=== PATIENT | female | born 1945 | race Caucasian/White ===

== ENCOUNTER 2016-10-13 21:51 | Emergency (ER) | payer MEDICARE, BC ==
--- NOTE | 2016-10-13 22:11 | ED Physician Documentation ---
PD HPI LOWER EXT INJURY - Stated complaint Stated Complaint: RT ANKLE INJURY - Chief complaint Chief Complaint: Ext Problem - History obtained from History obtained from: Patient - History of Present Illness PD HPI LOW EXT INJURY LOCATION: Right, Ankle, Foot Type of injury: No: Fall, Twist, Blunt / blow Timing - onset: Yesterday Timing - duration: Days (1-2) Timing - details: Gradual onset, Still present Worsened by: Moving, Palpating Associated symptoms: Swelling, Discolored (mild redness). No: Weakness, Numbness Similar symptoms before: Diagnosis (arthritis with prior ankle fracture with surgery years ago, and she gets episodes of swelling, pain, tenderness, redness about every 6 months or so. Has had steroid injections in ankle which helps. Dx as arthritis in the past. Denies history/Dx of gout nor rheumatoid. 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 : None HEENT: None Psych: Depression, Anxiety, Bipolar disorder, Panic attacks, Claustrophobia Musculoskeletal: Fibromyalgia, Scoliosis, Chronic back pain Derm: Psoriasis - Past Surgical History Past Surgical History: Yes General: Colonoscopy, EGD Ortho: Spine surgery, Other /CARE MANAGER CNA: section, Breast implants HEENT: Tonsil/Adenoidectomy - Present Medications Home Medications: Ambulatory Orders Medication Instructions Recorded Confirmed Hydrochlorothiazide 25 mg PO DAILY 02/15/13 10/13/16 Lisinopril [Zestril] 40 mg PO DAILY 02/15/13 10/13/16 Atorvastatin [Lovastatin] 20 mg PO DAILY 02/09/14 10/13/16 Pantoprazole [Protonix] 40 mg PO DAILY 10/13/16 10/13/16 - Allergies Allergies/Adverse Reactions: Allergies Allergy/AdvReac Type Severity Reaction Status Date / Time codeine [Codeine] AdvReac Severe Anxiety Verified 06/07/15 00:30 doxepin [Doxepin] AdvReac Severe Anxiety Verified 06/07/15 00:30 NSAIDS (Non-Steroidal AdvReac Severe Anxiety Verified 06/07/15 00:30 Anti-Inflamma ampicillin AdvReac Unknown Verified 10/13/16 21:59 - Social History Does the pt smoke?: Yes Smoking Status: Current every day smoker Does the pt drink ETOH?: Yes Does the pt have substance abuse?: No - Immunizations Immunizations are current?: Yes - POLST Patient has POLST: No PD ED PE NORMAL - Vitals Vital signs reviewed: Yes - General General: Alert and oriented X 3, Well developed/nourished, Other (slightly anxious, appears in pain from foot hurting. ) - Derm Derm: Warm and dry - Extremities Extremities: No calf tenderness / cord, Other (dorsum of proximal right foot with some redness, swelling, and marked tenderness. Some tender and swelling at great toe MTP as well. No skin sores. ) - Neuro Neuro: Alert and oriented X 3, No motor deficit, Normal speech - Psych Psych: Normal mood. No: Normal affect (slightly anxious but pleasant. ) Results - Vitals Vitals: Vital Signs - 24 hr 10/13/16 21:57 Temperature 36.3 C L Heart Rate 79 Respiratory 18 Rate Blood Pressure 155/74 H O2 Saturation 100 Oxygen O2 Source Room air PD MEDICAL DECISION MAKING - ED course Complexity details: reviewed old records, considered differential (consider gout at least with this episode, though no history of it in the past. Does not look infectious, is the most important. ), d/w patient Departure - Departure Disposition: 01 Home, Self Care Clinical Impression: Acute ankle pain Qualifiers: Laterality: right Qualified Code(s): M25.571 - Pain in right ankle and joints of right foot Condition: Stable Record reviewed to determine appropriate education?: Yes Instructions: Arthritis Foot Comments: Rest and elevate the ankle tonight and tomorrow. Oxycodone every 4-6 hours if needed for pain. See your Specialist tomorrow to see if they want to do an injection or such, as they had in the past. This could be an arthritis flare. It does not look infectious. Consider these episodes could be gout related as would give episodic flares of pain, swelling, redness. If so, then your PMD could consider medications between episodes to try to reduce them.
[2016-10-13] MEDS ORDERED: oxyCODONE/ACET 5/325 Prepack 4 PO STA (22:48)
[2016-10-13] MEDS ORDERED: MORPHINE 10 MG/ML VIAL IM STA (22:48)
[2016-10-13] MEDS ORDERED: ONDANSETRON ODT 4 MG TABLET TL STA (22:48)
[2016-10-13] MEDS ORDERED: diazePAM INJ 5 MG/ML SYRINGE IM STA (22:48)
[2016-10-13] MEDS ORDERED: diazePAM INJ 5 MG/ML SYRINGE ONE (23:00)
[2016-10-13] MEDS ORDERED: MORPHINE 10 MG/ML VIAL ONE (23:00)
[2016-10-13] MEDS ORDERED: ONDANSETRON ODT 4 MG TABLET ONE (23:01)
[2016-10-13] MEDS ORDERED: oxyCODONE/ACET 5/325 Prepack 4 PO ONE (23:01)
[2016-10-13 23:47] VITALS: BP 148/72
== END 2016-10-13 23:47 | disposition home or self-care (01) ==
LOC: ED 21:51
DX: M25.571 Pain in right ankle and joints of right foot (principal); M79.7 Fibromyalgia; I10 Essential (primary) hypertension; F17.200 Nicotine dependence, unspecified, uncomplicated
CPT/HCPCS: 96372; 99283; Q0162

== ENCOUNTER 2017-01-16 18:27 | Emergency (ER) | payer MEDICARE, BC ==
[2017-01-16] MEDS ORDERED: diazePAM INJ 5 MG/ML SYRINGE IM STA (19:32)
[2017-01-16] MEDS ORDERED: diazePAM INJ 5 MG/ML SYRINGE ONE (19:58)
[2017-01-16] MEDS ORDERED: MORPHINE 2 MG/ML CARPUJECT IM STA (20:41)
--- NOTE | 2017-01-16 20:52 | ED Physician Documentation ---
History of Present Illness - Stated complaint Stated Complaint: HEADACHE - Chief complaint Chief Complaint: Neuro - History obtained from History obtained from: Patient, Friend - History of Present Illness Timing: Chronic Pain level max: 8 Pain level now: 8 Improved by: rest Worsened by: movement - Additonal information Additional information: Patient is a 71-year-old female with chronic neck pain, states worsening over the past few weeks. Not relieved with Motrin and Tylenol at home. Has been receiving lidocaine and steroid injections into the neck. Patient states that she has chronic neck pain. States in the past she has received morphine, muscle relaxants and then a small prescription of pain medication for home. Review of Systems Constitutional: denies: Fever, Chills Eyes: denies: Photophobia Throat: denies: Sore throat Cardiac: denies: Chest pain / pressure, Palpitations, Calf pain Respiratory: denies: Cough GI: denies: Nausea, Vomiting Skin: denies: Rash Musculoskeletal: denies: Back pain Neurologic: denies: Focal weakness, Numbness, Confused, Altered mental status, Head injury, LOC PD PAST MEDICAL HISTORY - Past Medical History Cardiovascular: Hypertension Respiratory: None Neuro: None Endocrine/Autoimmune: None GI: Diverticulitis OSTEOLOGIST: None : None HEENT: None Psych: Depression, Anxiety, Bipolar disorder, Panic attacks, Claustrophobia Musculoskeletal: Fibromyalgia, Scoliosis, Chronic back pain Derm: Psoriasis - Past Surgical History Past Surgical History: Yes General: Colonoscopy, EGD Ortho: Spine surgery, Other /OSTEOLOGIST: section, Breast implants HEENT: Tonsil/Adenoidectomy - Present Medications Home Medications: Ambulatory Orders Medication Instructions Recorded Confirmed Hydrochlorothiazide 25 mg PO DAILY 02/15/13 01/16/17 Lisinopril [Zestril] 40 mg PO DAILY 02/15/13 01/16/17 Atorvastatin [Lovastatin] 20 mg PO DAILY 02/09/14 01/16/17 Pantoprazole [Protonix] 40 mg PO DAILY 10/13/16 01/16/17 Oxycodone HCl/Acetaminophen 1 - 2 each PO Q6H PRN #10 tablet 01/16/17 [Percocet 5-325 mg Tablet] - Allergies Allergies/Adverse Reactions: Allergies Allergy/AdvReac Type Severity Reaction Status Date / Time codeine [Codeine] AdvReac Severe Anxiety Verified 06/07/15 00:30 doxepin [Doxepin] AdvReac Severe Anxiety Verified 06/07/15 00:30 NSAIDS (Non-Steroidal AdvReac Severe Anxiety Verified 06/07/15 00:30 Anti-Inflamma ampicillin AdvReac Unknown Verified 10/13/16 21:59 - Social History Does the pt smoke?: Yes Smoking Status: Current every day smoker Does the pt drink ETOH?: Yes Does the pt have substance abuse?: No - Immunizations Immunizations are current?: Yes - POLST Patient has POLST: No PD ED PE NORMAL - Vitals Vital signs reviewed: Yes - General General: Alert and oriented X 3, No acute distress, Well developed/nourished - HEENT HEENT: Atraumatic, PERRL, Moist mucous membranes - Neck Neck: Supple, no meningeal sign, No bony TTP, No JVD, No bruit, Other ( paraspinal tenderness and spasm. ) - Derm Derm: Warm and dry - Neuro Neuro: Alert and oriented X 3, material control manager 2-12 intact, No motor deficit, No sensory deficit - Psych Psych: Normal mood, Normal affect Results - Vitals Vitals: Vital Signs - 24 hr 01/16/17 01/16/17 18:38 21:26 Temperature 37.0 C 36.3 C L Heart Rate 66 61 Respiratory 18 18 Rate Blood Pressure 132/73 H 157/81 H O2 Saturation 99 99 Oxygen O2 Source Room air PD MEDICAL DECISION MAKING - ED course Complexity details: considered differential, d/w patient ED course: Patient is a 71-year-old female who presents to the emergency department with an acute exacerbation of her chronic neck pain. Given Valium and this did help the pain, then given a small dose of morphine intramuscularly which helped her pain significantly. Will place him a small amount of pain medication for home and follow-up with her PCP. Patient counseled regarding signs and symptoms for which I believe and urgent re-evaluation would be necessary. Patient with good understanding of and agreement to plan and is comfortable going home at this time This document was made in part using voice recognition software. While efforts are made to proofread this document, sound alike and grammatical errors may occur. Departure - Departure Disposition: 01 Home, Self Care Clinical Impression: Neck pain, musculoskeletal Condition: Good Instructions: ED Neck Pain No Trauma Follow-Up: your,doctor in 1 week [Other] Prescriptions: Oxycodone HCl/Acetaminophen [Percocet 5-325 mg Tablet] 1 - 2 each PO Q6H PRN # 10 tablet PRN Reason: pain Comments: Return if you worsen. This should improve over the next few days. Follow-up with your doctor for further care. Do not drink alcohol or drive while on narcotic pain medicine. Note that many narcotic pain relievers also contain tylenol/acetaminophen. Please ensure that your total dose of acetaminophen from all sources does not exceed 3 grams (3000mg) per day. You may constipated on this medication, take a stool softener such as "Colace" twice a day while you are on it. Also recommend a [id number]-[id number] laxative such as senna or MiraLAX any day that you do not have a bowel movement. If you received narcotic pain medication in the emergency department, do not drive or operate machinery for the next 24 hours. Discharge Date/Time: 01/16/17 21:26
[2017-01-16] MEDS ORDERED: MORPHINE 2 MG/ML CARPUJECT ONE ×2 (20:58→21:09)
[2017-01-16 21:28] VITALS: BP 157/81
== END 2017-01-16 21:26 | disposition home or self-care (01) ==
LOC: ED 18:27
DX: M54.2 Cervicalgia (principal); I10 Essential (primary) hypertension; M79.7 Fibromyalgia; F17.200 Nicotine dependence, unspecified, uncomplicated
CPT/HCPCS: 96372; 99283; 99284

== ENCOUNTER 2017-02-03 15:39 | Emergency (ER) | payer MEDICARE, BC ==
[2017-02-03] MEDS ORDERED: diazePAM INJ 5 MG/ML SYRINGE IM STA (16:18)
[2017-02-03] MEDS ORDERED: MORPHINE 10 MG/ML VIAL IVP STA (16:18)
--- NOTE | 2017-02-03 16:24 | ED Physician Documentation ---
History of Present Illness - Stated complaint Stated Complaint: CONLEY,NECK,BACK,BILATERAL ARM PX - Chief complaint Chief Complaint: General - History obtained from History obtained from: Patient, Friend - History of Present Illness Timing: How many days ago (3) Pain level max: 8 Pain level now: 8 Improved by: nothing Worsened by: movement - Additonal information Additional information: Patient is a 71-year-old female who presents to the emergency department with neck and shoulder pain. This is a chronic issue for her and occasionally has a flare of the symptoms. Usually resolves quickly with a small dose of morphine and Valium. No fevers, no headache. 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 : None HEENT: None Psych: Depression, Anxiety, Bipolar disorder, Panic attacks, Claustrophobia Musculoskeletal: Fibromyalgia, Scoliosis, Chronic back pain Derm: Psoriasis - Past Surgical History Past Surgical History: Yes General: Colonoscopy, EGD Ortho: Spine surgery, Other /MUSIC REHABILITATION THERAPIST: section, Breast implants HEENT: Tonsil/Adenoidectomy - Present Medications Home Medications: Ambulatory Orders Medication Instructions Recorded Confirmed Hydrochlorothiazide 25 mg PO DAILY 02/15/13 02/03/17 Lisinopril [Zestril] 40 mg PO DAILY 02/15/13 02/03/17 Atorvastatin [Lovastatin] 20 mg PO DAILY 02/09/14 02/03/17 Pantoprazole [Protonix] 40 mg PO DAILY 10/13/16 02/03/17 Oxycodone HCl/Acetaminophen 1 - 2 each PO Q6H PRN #10 tablet 01/16/17 02/03/17 [Percocet 5-325 mg Tablet] Oxycodone HCl/Acetaminophen 1 - 2 each PO Q6H PRN #10 tablet 02/03/17 [Percocet 5-325 mg Tablet] - Allergies Allergies/Adverse Reactions: Allergies Allergy/AdvReac Type Severity Reaction Status Date / Time codeine [Codeine] AdvReac Severe Anxiety Verified 02/03/17 15:51 doxepin [Doxepin] AdvReac Severe Anxiety Verified 02/03/17 15:51 NSAIDS (Non-Steroidal AdvReac Severe Anxiety Verified 02/03/17 15:51 Anti-Inflamma ampicillin AdvReac Unknown Verified 02/03/17 15:51 - Social History Does the pt smoke?: Yes Smoking Status: Current every day smoker Does the pt drink ETOH?: Yes Does the pt have substance abuse?: No - Immunizations Immunizations are current?: Yes - POLST Patient has POLST: No PD ED PE NORMAL - Vitals Vital signs reviewed: Yes - General General: Alert and oriented X 3, No acute distress, Well developed/nourished - HEENT HEENT: Atraumatic, PERRL, EOMI, Moist mucous membranes - Neck Neck: Supple, no meningeal sign, No bony TTP, Other (Mild paraspinal muscle spasm bilateral paracervical) - Cardiac Cardiac: RRR, No murmur - Respiratory Respiratory: No respiratory distress, Clear bilaterally - Abdomen Abdomen: Soft, Non tender, Non distended - Back Back: No spinal TTP - Derm Derm: Warm and dry - Neuro Neuro: Alert and oriented X 3, corporate travel consultant 2-12 intact, No motor deficit, No sensory deficit, Normal speech - Psych Psych: Normal mood, Normal affect Results - Vitals Vitals: Oxygen O2 Source Room air PD MEDICAL DECISION MAKING - ED course Complexity details: reviewed old records, re-evaluated patient, considered differential, d/w patient ED course: Patient is a 71-year-old female who presents to the emergency department with her usual neck and shoulder pain. Given a small dose of morphine and Valium. Pain greatly improved. Will prescribe a small amount of pain medication for home. We will have her follow-up with her PCP for further evaluation. No evidence of meningitis. No fever. No evidence of subarachnoid hemorrhage. Patient counseled regarding signs and symptoms for which I believe and urgent re -evaluation would be necessary. Patient with good understanding of and agreement to plan and is comfortable going home at this time This document was made in part using voice recognition software. While efforts are made to proofread this document, sound alike and grammatical errors may occur. No evidence of epidural abscess Departure - Departure Disposition: 01 Home, Self Care Clinical Impression: Neck pain, musculoskeletal Condition: Good Instructions: ED Neck Back Pain General Follow-Up: REYNALDO JEWELL MD [Primary Care Provider] - Within 1 week Prescriptions: Oxycodone HCl/Acetaminophen [Percocet 5-325 mg Tablet] 1 - 2 each PO Q6H PRN # 10 tablet PRN Reason: pain Comments: Return if you worsen. Do not drink alcohol or drive while on narcotic pain medicine. Note that many narcotic pain relievers also contain tylenol/acetaminophen. Please ensure that your total dose of acetaminophen from all sources does not exceed 3 grams (3000mg) per day. You may constipated on this medication, take a stool softener such as "Colace" twice a day while you are on it. Also recommend a [id number] laxative such as senna or MiraLAX any day that you do not have a bowel movement. If you received narcotic pain medication in the emergency department, do not drive or operate machinery for the next 24 hours. Discharge Date/Time: 02/03/17 16:51
[2017-02-03] MEDS ORDERED: diazePAM INJ 5 MG/ML SYRINGE ONE (16:32)
[2017-02-03] MEDS ORDERED: MORPHINE 10 MG/ML VIAL ONE (16:34)
[2017-02-03 16:52] VITALS: BP 146/79
== END 2017-02-03 16:51 | disposition home or self-care (01) ==
LOC: ED 15:39
DX: M54.2 Cervicalgia (principal); M25.511 Pain in right shoulder; M25.512 Pain in left shoulder; G89.29 Other chronic pain; I10 Essential (primary) hypertension; M79.7 Fibromyalgia; Z87.19 Personal history of other diseases of the digestive system; F17.200 Nicotine dependence, unspecified, uncomplicated
CPT/HCPCS: 96372; 96374; 99283; 99284

== ENCOUNTER 2017-08-02 18:20 | Emergency (ER) | payer MEDICARE, BC ==
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
[2017-08-02] MEDS ORDERED: HYDROmorphone 1 MG/ML SYRINGE IM STA (19:21)
[2017-08-02] MEDS ORDERED: DEXAMETHASONE 10 MG/ML VIAL PO STA (19:22)
[2017-08-02] MEDS ORDERED: LORazepam 2 MG/ML VIAL IM STA (19:22)
[2017-08-02] MEDS ORDERED: MORPHINE 10 MG/ML VIAL IM STA (19:43)
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
[2017-08-02 20:24] VITALS: BP 159/82
--- NOTE | 2017-08-02 20:28 | CT Report ---
EXAM: CT CERVICAL SPINE WITHOUT CONTRAST DATE: 08/02/2017 08:04 PM. HISTORY: Hit top of head; headache and neck pain. COMPARISONS: 05/01/2013. TECHNIQUE: Thin-section axial images were acquired of the cervical spine without contrast. Post-proce ssing: Coronal and sagittal reformats. Other: None. In accordance with CT protocol optimization, one or more of the following dose reduction techniques w ere utilized for this exam: automated exposure control, adjustment of mA and/or KV based on patient s ize, or use of iterative reconstructive technique. FINDINGS: Alignment: No evidence of dislocation. There is 0.2 cm anterolisthesis of C4 on C5. This is stable an d likely degenerative. Bones: No fracture or bone lesion. Interspace Levels/Facets: There is disk space narrowing and marginal osteophyte formation at the C5-C 6 and C6-C7 levels. There is moderate multilevel facet arthrosis. Spinal canal: No significant abnormalities are seen. Other: There is a 2.4 x 2.6 cm rounded hyperdensity at the lateral margin of the right thyroid lobe. This hyperdensity measures 1.5 cm in diameter on the previous study. IMPRESSION: 1. No evidence of cervical spine fracture or dislocation. 2. 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 3. Interval increase in rounded hyperdensity at the lateral margin of the right thyroid lobe, now nasrin suring 2.4 x 2.6 cm. Nonemergent thyroid ultrasound follow-up is recommended for further evaluation o f this finding as indicated. [facility] Referring Provider Line: [phone] SITE ID: [id number]
== END 2017-08-02 20:49 | disposition home or self-care (01) ==
LOC: ED 18:20
DX: S00.03XA Contusion of scalp, initial encounter (principal); S16.1XXA Strain of muscle, fascia and tendon at neck level, initial encounter; W20.8XXA Other cause of strike by thrown, projected or falling object, initial encounter; I10 Essential (primary) hypertension; Z87.19 Personal history of other diseases of the digestive system; M79.7 Fibromyalgia; F17.200 Nicotine dependence, unspecified, uncomplicated; R51 Headache
CPT/HCPCS: 70450; 72125; 96372; 99283; J2060

== ENCOUNTER 2017-10-04 17:33 | Emergency (ER) | payer MEDICARE, BC ==
[2017-10-04 18:12] LABS: BASOPHILS # (AUTO) 0.1 10^3/uL (0.0-0.1); BASOPHILS % (AUTO) 0.7 %; EOSINOPHILS # (AUTO) 0.1 10^3/uL (0.0-0.7); EOSINOPHILS % (AUTO) 1.1 %; HGB - HEMOGLOBIN 12.5 g/dL (12.0-16.0); LYMPHOCYTES % (AUTO) 9.7 %; MEAN CORPUSCULAR HEMOGLOBIN 29.6 pg (27.0-31.0); MEAN CORPUSCULAR HGB CONC 32.7 g/dL (32.0-36.0); MEAN CORPUSCULAR VOLUME 90.4 fL (81.0-99.0); MEAN PLATELET VOLUME 10.3 fL (7.9-10.8); MONOCYTES # (AUTO) 0.9 10^3/uL (0.0-1.0); MONOCYTES % (AUTO) 8.7 %; NEUTROPHILS # (AUTO) 8.3 10^3/uL (1.5-6.6); NEUTROPHILS % (AUTO) 79.8 %; PLT - PLATELET COUNT 197 10^3/uL (130-450); RED BLOOD COUNT 4.23 10^6/uL (4.20-5.40); RED CELL DISTRIBUTION WIDTH 13.4 % (12.0-15.0); WHITE BLOOD COUNT 10.4 x10^3/uL (4.8-10.8)
[2017-10-04 18:14] LABS: BILIRUBIN,URINE NEGATIVE (NEGATIVE); GLUCOSE, URINE (UA) NEGATIVE (NEGATIVE); KETONES,URINE (UA) NEGATIVE (NEGATIVE); LEUKOCYTE ESTERASE, URINE NEGATIVE (NEGATIVE); NITRITE,URINE NEGATIVE (NEGATIVE); OCCULT BLOOD,URINE NEGATIVE (NEGATIVE); PROTEIN,URINE NEGATIVE (NEGATIVE); UROBILINOGEN,URINE 0.2 (NORMAL) E.U./dL (NORMAL)
[2017-10-04 18:20] LABS: CLARITY,URINE CLEAR (CLEAR)
[2017-10-04 18:26] LABS: ALBUMIN 4.6 g/dL (3.2-5.5); ALBUMIN/GLOBULIN RATIO 1.4 (1.0-2.2); BILIRUBIN,TOTAL 0.8 mg/dL (0.2-1.0); CALCIUM 9.6 mg/dL (8.5-10.3); CREATININE 1.4 mg/dL (0.4-1.0); TOTAL PROTEIN 7.9 g/dL (6.7-8.2)
--- NOTE | 2017-10-04 19:02 | ED Physician Documentation ---
PD HPI ABD PAIN - Stated complaint Stated Complaint: AB PX/WOUND CHECK - Chief complaint Chief Complaint: Abd Pain - History obtained from History obtained from: Patient - History of Present Illness Timing - onset: How many days ago (couple) Timing - duration: Days Timing - details: Gradual onset, Still present Quality: Aching Location: LLQ Radiation: Lower back Improved by: No: Eating Worsened by: No: Eating Associated symptoms: Diarrhea (loose). No: Fever, Nausea, Vomiting, Melena, Hematochezia Similar symptoms before: Diagnosis (diverticulitis a few times in the past) Recently seen: Other (had breast biopsy today and was having some bleeding from site. Called nurse and was directed to have it checked that was not forming hematoma.) Review of Systems Constitutional: denies: Fever, Chills Cardiac: denies: Chest pain / pressure, Palpitations Respiratory: denies: Dyspnea, Cough GI: reports: Abdominal Pain, Diarrhea. 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 : None HEENT: None Psych: Depression, Anxiety, Bipolar disorder, Panic attacks, Claustrophobia Musculoskeletal: Fibromyalgia, Scoliosis, Chronic back pain Derm: Psoriasis Other Past Medical History: Meningioma; neck pain making arms numb - Past Surgical History Past Surgical History: Yes General: Colonoscopy, EGD Ortho: Spine surgery, Other /POWER CRANE OPERATOR: section, Breast implants, Other HEENT: Tonsil/Adenoidectomy - Present Medications Home Medications: Ambulatory Orders Medication Instructions Recorded Confirmed Hydrochlorothiazide 25 mg PO DAILY 02/15/13 02/03/17 Lisinopril [Zestril] 40 mg PO DAILY 02/15/13 02/03/17 Atorvastatin [Lovastatin] 20 mg PO DAILY 02/09/14 02/03/17 Pantoprazole [Protonix] 40 mg PO DAILY 10/13/16 02/03/17 Oxycodone HCl/Acetaminophen 1 - 2 each PO Q6H PRN #10 tablet 02/03/17 [Percocet 5-325 mg Tablet] Amlodipine Besylate [Norvasc] 1 tab PO DAILY 08/02/17 08/02/17 Oxycodone HCl/Acetaminophen 1 each PO Q6H PRN #20 tablet 08/02/17 [Percocet 5-325 mg Tablet] Aspirin [Adult Aspirin Regimen] 1 tab PO DAILY 10/04/17 10/04/17 Cephalexin [Keflex] 500 mg PO TID #21 capsule 10/04/17 Metronidazole [Flagyl] 500 mg PO BID #14 tablet 10/04/17 Ondansetron Odt [Zofran] 4 mg TL Q6H PRN #15 tablet 10/04/17 Oxycodone HCl/Acetaminophen 1 each PO Q6H PRN #20 tablet 10/04/17 [Percocet 5-325 mg Tablet] Potassium Chloride 1 tab PO DAILY 10/04/17 10/04/17 - Allergies Allergies/Adverse Reactions: Allergies Allergy/AdvReac Type Severity Reaction Status Date / Time hydromorphone [From Dilaudid] Allergy Anxiety Verified 10/04/17 17:42 codeine [Codeine] AdvReac Severe Anxiety Verified 10/04/17 17:42 doxepin [Doxepin] AdvReac Severe Anxiety Verified 10/04/17 17:42 NSAIDS (Non-Steroidal AdvReac Severe Anxiety Verified 10/04/17 17:42 Anti-Inflamma ampicillin AdvReac Unknown Verified 10/04/17 17:42 antidepressants Allergy Respiratory Uncoded 08/02/17 19:10 steroids Allergy Anxiety Uncoded 08/02/17 19:54 - Social History Does the pt smoke?: Yes Smoking Status: Current every day smoker Does the pt drink ETOH?: Yes Does the pt have substance abuse?: No - Family History Family history: reports: Non contributory - Immunizations Immunizations are current?: Yes - POLST Patient has POLST: No PD ED PE NORMAL - Vitals Vital signs reviewed: Yes - General General: Alert and oriented X 3, No acute distress, Well developed/nourished - HEENT HEENT: Pharynx benign - Neck Neck: Supple, no meningeal sign, No adenopathy - Cardiac Cardiac: RRR, No murmur - Respiratory Respiratory: Clear bilaterally - Abdomen Abdomen: Normal bowel sounds, Soft, Non distended, No organomegaly, Other ( tender locally LLQ without percussion, rebound nor referred tenderness. ) - Female Female : Deferred - Rectal Rectal: Deferred - Back Back: No CVA TTP - Derm Derm: Normal color, Warm and dry, No rash, Other (left breast without fluctuance nor induration to suggest hematoma at biopsy site. ) - Extremities Extremities: No deformity, No tenderness to palpate, Normal ROM s pain, No edema , No calf tenderness / cord - Neuro Neuro: Alert and oriented X 3, No motor deficit, Normal speech Results - Vitals Vitals: Oxygen O2 Source Room air - Labs Labs: Laboratory Tests 10/04/17 10/04/17 10/04/17 18:05 18:05 18:07 WBC 10.4 RBC 4.23 Hgb 12.5 Hct 38.3 MCV 90.4 MCH 29.6 MCHC 32.7 RDW 13.4 Plt Count 197 MPV 10.3 Neut # 8.3 H Lymph # 1.0 L [place] # 0.9 Eos # 0.1 Baso # 0.1 Absolute Nucleated RBC 0.00 Nucleated RBC % 0.0 Sodium 138 Potassium 3.9 Chloride 102 Carbon Dioxide 24 Anion Gap 12.0 BUN 28 H Creatinine 1.4 H Estimated GFR (MDRD) 37 L Glucose 98 Calcium 9.6 Total Bilirubin 0.8 AST 16 ALT 18 Alkaline Phosphatase 76 Total Protein 7.9 Albumin 4.6 Globulin 3.3 Albumin/Globulin Ratio 1.4 Lipase 24 Urine Color YELLOW Urine Clarity CLEAR Urine pH 5.0 Ur Specific [place] 1.025 Urine Protein NEGATIVE Urine Glucose (UA) NEGATIVE Urine Ketones NEGATIVE Urine Occult Blood NEGATIVE Urine Nitrite NEGATIVE Urine Bilirubin NEGATIVE Urine Urobilinogen 0.2 (NORMAL) Ur Leukocyte Esterase NEGATIVE Ur Microscopic Review NOT INDICATED Urine Culture Comments NOT INDICATED PD MEDICAL DECISION MAKING - ED course Complexity details: considered differential (she has pain that feels c/w diverticulitis she has had. Exam is localized tenderness without peritoneal signs. an treat empirically after shared discussion. Her breast biopsy site is without hematoma by palpation. ), d/w patient Departure - Departure Disposition: 01 Home, Self Care Clinical Impression: Abdominal pain, left lower quadrant, Acute diverticulitis, Status post left breast biopsy Condition: Stable Record reviewed to determine appropriate education?: Yes Instructions: ED Diverticulitis Follow-Up: REYNALDO JEWELL MD [Primary Care Provider] - Prescriptions: Cephalexin [Keflex] 500 mg PO TID #21 capsule Metronidazole [Flagyl] 500 mg PO BID #14 tablet Ondansetron Odt [Zofran] 4 mg TL Q6H PRN #15 tablet PRN Reason: Nausea / Vomiting Oxycodone HCl/Acetaminophen [Percocet 5-325 mg Tablet] 1 each PO Q6H PRN #20 tablet PRN Reason: Pain Comments: Drink lots of fluids. We will presume you have diverticulitis since it feels like and ask like it. Cephalexin and metronidazole antibiotics as prescribed for a week. Use Tylenol if needed for pain and add Percocet if needed for worse pain. Recheck if not improving over the next few days and return sooner if worse. Your breast biopsy area appears okay without any obvious hematoma to it. He can apply some warm towels to the area periodically. Discharge Date/Time: 10/04/17 20:43
[2017-10-04] MEDS ORDERED: DEXAMETHASONE 10 MG/ML VIAL IVP STA (19:31)
[2017-10-04] MEDS ORDERED: cefTRIAXone 1 GM in SODIUM CHLORIDE 0.9% MINIBAG 100 ML IV STA (19:31)
[2017-10-04] MEDS ORDERED: metroNIDAZOLE 250 MG TABLET PO STA (19:31)
[2017-10-04] MEDS ORDERED: LORazepam 2 MG/ML VIAL IVP STA (19:36)
[2017-10-04] MEDS ORDERED: MORPHINE 10 MG/ML VIAL IVP STA (19:36)
[2017-10-04 20:12] VITALS: BP 138/65
[2017-10-04] MEDS ORDERED: oxyCODONE/ACET 5/325 Prepack 4 PO STA (20:18)
== END 2017-10-04 20:43 | disposition home or self-care (01) ==
LOC: ED 17:33
DX: R10.32 Left lower quadrant pain (principal); R19.7 Diarrhea, unspecified; I10 Essential (primary) hypertension; F17.200 Nicotine dependence, unspecified, uncomplicated; Z98.890 Other specified postprocedural states
CPT/HCPCS: 36415; 80053; 81003; 83690; 85025; 96365; 96375; 99283; A9270; J2060; 81001; 87086

== ENCOUNTER 2017-11-01 08:24 | Outpatient (CLI) | payer MEDICARE, BC ==
--- NOTE | 2017-11-01 09:53 | Ultrasound Report ---
Procedure Date: 11/01/2017 Accession Number: [id number] / [id number] Procedure: US - Head or Neck Soft Tissue CPT Code: FULL RESULT: EXAM: Head or Neck Soft Tissue DATE: 11/01/2017 9:12 AM CLINICAL HISTORY: THYROID NODULE for follow-up COMPARISON: 05/06/2016. TECHNIQUE: Real time sonographic imaging of the thyroid was performed by the test hole driller. Multiple customer contact representative static images were saved for review. FINDINGS: THYROID GLAND: Right Lobe: 7.2 x 2.7 x 3.6 cm, volume 36 cc. Normal background echotexture. Right Lobe Nodules: Dominant upper pole complex cyst 3.9 x 2.1 x 3.0 cm. Adjacent 7 mm cyst. Left Lobe: 5.2 x 1.9 x 2 cm, volume 10.3 cc. Normal background echotexture. Left Lobe Nodules:2 mm mid pole cyst and 3 mm upper pole complex cyst versus possibly solid lesion. Isthmus: 0.6 cm AP. Isthmic Nodules: None. LYMPH NODES: No adenopathy demonstrated in the central or lateral compartment. OTHER: Stable compared with the prior ultrasound.. IMPRESSION: 1. Stable thyroid ultrasound compared with 05/06/2016 redemonstrating a minimally complex dominant right upper pole thyroid cyst. No suspicious solid masses are identified. TI-RADS: TR2 Not Suspicious Management recommendations are based on 2015 [place] [employer] Management Guidelines for Adult Patients with Thyroid Nodules and Differentiated Thyroid Cancer. [facility]
== END 2017-11-01 08:25 | disposition home or self-care (01) ==
LOC: DI 08:24
PROVIDERS: ATTEND Student in an Organized Health Care Education/Training Program
DX: E04.1 Nontoxic single thyroid nodule (principal)
CPT/HCPCS: 76536

== ENCOUNTER 2018-01-05 14:26 | Emergency (ER) | payer MEDICARE, BC ==
[2018-01-05 14:59] LABS: BASOPHILS # (AUTO) 0.1 10^3/uL (0.0-0.1); BASOPHILS % (AUTO) 1.3 %; EOSINOPHILS # (AUTO) 0.1 10^3/uL (0.0-0.7); EOSINOPHILS % (AUTO) 0.9 %; HGB - HEMOGLOBIN 12.7 g/dL (12.0-16.0); LYMPHOCYTES # (AUTO) 0.9 10^3/uL (1.5-3.5); MEAN CORPUSCULAR HGB CONC 33.2 g/dL (32.0-36.0); MEAN CORPUSCULAR VOLUME 90.2 fL (81.0-99.0); MEAN PLATELET VOLUME 9.8 fL (7.9-10.8); MONOCYTES # (AUTO) 0.7 10^3/uL (0.0-1.0); MONOCYTES % (AUTO) 6.4 %; NEUTROPHILS # (AUTO) 9.5 10^3/uL (1.5-6.6); NEUTROPHILS % (AUTO) 83.4 %; PLT - PLATELET COUNT 219 10^3/uL (130-450); RED BLOOD COUNT 4.23 10^6/uL (4.20-5.40); RED CELL DISTRIBUTION WIDTH 14.6 % (12.0-15.0); WHITE BLOOD COUNT 11.4 x10^3/uL (4.8-10.8)
[2018-01-05 15:13] LABS: ALBUMIN 4.6 g/dL (3.2-5.5); ALBUMIN/GLOBULIN RATIO 1.6 (1.0-2.2); BILIRUBIN,TOTAL 0.9 mg/dL (0.2-1.0); CALCIUM 9.5 mg/dL (8.5-10.3); CREATININE 1.3 mg/dL (0.4-1.0); TOTAL PROTEIN 7.4 g/dL (6.7-8.2)
[2018-01-05 18:15] LABS: BILIRUBIN,URINE NEGATIVE (NEGATIVE); GLUCOSE, URINE (UA) NEGATIVE (NEGATIVE); KETONES,URINE (UA) NEGATIVE (NEGATIVE); LEUKOCYTE ESTERASE, URINE NEGATIVE (NEGATIVE); NITRITE,URINE NEGATIVE (NEGATIVE); OCCULT BLOOD,URINE NEGATIVE (NEGATIVE); PROTEIN,URINE NEGATIVE (NEGATIVE); UROBILINOGEN,URINE 0.2 (NORMAL) E.U./dL (NORMAL)
[2018-01-05 18:17] LABS: CLARITY,URINE CLEAR (CLEAR)
[2018-01-05] MEDS ORDERED: LORazepam 0.5 MG TABLET PO STA ×2 (18:27→21:35)
[2018-01-05] MEDS ORDERED: ONDANSETRON 4 MG/2 ML VIAL IVP STA (18:27)
[2018-01-05] MEDS ORDERED: SODIUM CHLORIDE 0.9% 1,000 ML IV ONE (18:27)
[2018-01-05] MEDS ORDERED: HYDROmorphone 1 MG/ML CARPUJECT IVP STA (18:27)
--- NOTE | 2018-01-05 18:31 | ED Physician Documentation ---
PD HPI ABD PAIN - Stated complaint Stated Complaint: ABD PX - Chief complaint Chief Complaint: Abd Pain - History obtained from History obtained from: Patient - History of Present Illness Timing - details: Abrupt onset Pain level max: 8 Pain level now: 8 Quality: Cramping, Sharp Location: LLQ Radiation: Other (no radiation) Improved by: Other (nothing) Worsened by: Position Associated symptoms: Nausea Similar symptoms before: Other (The patient's symptoms today are similar to prior episodes of diverticulitis that she is experienced in the past) Recently seen: Other (The patient had a similar episode in September, but today's episode is much more intense) Review of Systems Constitutional: reports: Chills, Fatigue. denies: Fever Eyes: denies: Discharge Ears: denies: Ear pain Nose: denies: Congestion Throat: denies: Dental pain / toothache Cardiac: denies: Chest pain / pressure Respiratory: denies: Dyspnea GI: reports: Abdominal Pain, Nausea. 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 : None HEENT: None Psych: Depression, Anxiety, Bipolar disorder, Panic attacks, Claustrophobia Musculoskeletal: Fibromyalgia, Scoliosis, Chronic back pain Derm: Psoriasis - Past Surgical History Past Surgical History: Yes General: Colonoscopy, EGD Ortho: Spine surgery, 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: 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, Breast implants, Other HEENT: Tonsil/Adenoidectomy - Present Medications Home Medications: Ambulatory Orders Medication Instructions Recorded Confirmed Hydrochlorothiazide 25 mg PO DAILY 02/15/13 02/03/17 Lisinopril [Zestril] 40 mg PO DAILY 02/15/13 02/03/17 Atorvastatin [Lovastatin] 20 mg PO DAILY 02/09/14 02/03/17 Pantoprazole [Protonix] 40 mg PO DAILY 10/13/16 02/03/17 Amlodipine Besylate [Norvasc] 1 tab PO DAILY 08/02/17 08/02/17 Oxycodone HCl/Acetaminophen 1 each PO Q6H PRN #20 tablet 08/02/17 [Percocet 5-325 mg Tablet] Aspirin [Adult Aspirin Regimen] 1 tab PO DAILY 10/04/17 10/04/17 Cephalexin [Keflex] 500 mg PO TID #21 capsule 10/04/17 Metronidazole [Flagyl] 500 mg PO BID #14 tablet 10/04/17 Ondansetron Odt [Zofran] 4 mg TL Q6H PRN #15 tablet 10/04/17 Oxycodone HCl/Acetaminophen 1 each PO Q6H PRN #20 tablet 10/04/17 [Percocet 5-325 mg Tablet] Potassium Chloride 1 tab PO DAILY 10/04/17 10/04/17 Amox/Clav 875/125 [Augmentin] 1 each PO Q12H #20 tablet 01/05/18 Ondansetron Odt [Zofran] 4 mg TL Q6H PRN #20 tablet 01/05/18 Oxycodone HCl/Acetaminophen 1 each PO Q6H PRN #14 tablet 01/05/18 [Percocet 5-325 mg Tablet] - Allergies Allergies/Adverse Reactions: Allergies Allergy/AdvReac Type Severity Reaction Status Date / Time hydromorphone [From Dilaudid] Allergy Anxiety Verified 01/05/18 14:34 codeine [Codeine] AdvReac Severe Anxiety Verified 01/05/18 14:34 doxepin [Doxepin] AdvReac Severe Anxiety Verified 01/05/18 14:34 NSAIDS (Non-Steroidal AdvReac Severe Anxiety Verified 01/05/18 14:34 Anti-Inflamma ampicillin AdvReac Unknown Verified 01/05/18 14:34 antidepressants Allergy Respiratory Uncoded 01/05/18 14:34 steroids Allergy Anxiety Uncoded 01/05/18 14:34 - Social History Does the pt smoke?: Yes Smoking Status: Current every day smoker Does the pt drink ETOH?: Yes Does the pt have substance abuse?: No - Immunizations Immunizations are current?: Yes - POLST Patient has POLST: No PD ED PE NORMAL - General General: Alert and oriented X 3. No: No acute distress (The patient appears quite uncomfortable) - HEENT HEENT: Atraumatic, PERRL, EOMI, Ears normal - Neck Neck: Supple, no meningeal sign - Cardiac Cardiac: RRR, Strong equal pulses - Respiratory Respiratory: No respiratory distress - Abdomen Abdomen: Soft, Non distended. No: Non tender (The patient has tenderness to palpation in the left lower quadrant) - Derm Derm: Normal color - Extremities Extremities: No deformity - Neuro Neuro: Alert and oriented X 3, Normal speech - Psych Psych: Normal affect Results - Vitals Vitals: Vital Signs - 24 hr 01/05/18 01/05/18 14:31 21:48 Temperature 36.6 C Heart Rate 72 84 Respiratory 16 18 Rate Blood Pressure 141/70 H 147/74 H O2 Saturation 99 97 Oxygen O2 Source Room air - Labs Labs: Laboratory Tests 01/05/18 01/05/18 01/05/18 14:45 14:45 Unknown WBC 11.4 H RBC 4.23 Hgb 12.7 Hct 38.1 MCV 90.2 MCH 30.0 MCHC 33.2 RDW 14.6 Plt Count 219 MPV 9.8 Neut # (Auto) 9.5 H Lymph # (Auto) 0.9 L [place] # (Auto) 0.7 Eos # (Auto) 0.1 Baso # (Auto) 0.1 Absolute Nucleated RBC 0.00 Nucleated RBC % 0.0 Sodium 141 Potassium 3.6 Chloride 107 Carbon Dioxide 25 Anion Gap 9.0 BUN 22 H Creatinine 1.3 H Estimated GFR (MDRD) 40 L Glucose 103 H Calcium 9.5 Total Bilirubin 0.9 AST 16 ALT 17 Alkaline Phosphatase 71 Total Protein 7.4 Albumin 4.6 Globulin 2.8 Albumin/Globulin Ratio 1.6 Lipase 31 Urine Color YELLOW Urine Clarity CLEAR Urine pH 6.0 Ur Specific [place] 1.025 Urine Protein NEGATIVE Urine Glucose (UA) NEGATIVE Urine Ketones NEGATIVE Urine Occult Blood NEGATIVE Urine Nitrite NEGATIVE Urine Bilirubin NEGATIVE Urine Urobilinogen 0.2 (NORMAL) Ur Leukocyte Esterase NEGATIVE Ur Microscopic Review NOT INDICATED Urine Culture Comments NOT INDICATED - Rads (name of study) CT abd/pelvis Radiology: Final report received PD MEDICAL DECISION MAKING - ED course ED course: On reevaluation the patient was still uncomfortable and I recommended admission to the hospital. I discussed the case with the hospitalist Dr. Laura who came and evaluated the patient. The patient decided that she did not want to stay for admission and instead wanted to be discharged home. The patient is of sound mind and capable of making his decision. The patient requested only oral antibiotics and declined even a dose of IV antibiotics in the emergency department. I discussed with the patient warning signs and recommended returning to the emergency department immediately for worsening or any concerns. - Sepsis Event Vital Signs: Vital Signs - 24 hr 01/05/18 01/05/18 14:31 21:48 Temperature 36.6 C Heart Rate 72 84 Respiratory 16 18 Rate Blood Pressure 141/70 H 147/74 H O2 Saturation 99 97 Oxygen O2 Source Room air Departure - Departure Disposition: 01 Home, Self Care Clinical Impression: Diverticulitis Condition: Good Instructions: Abdominal Pain, ED Diverticulitis Follow-Up: REYNALDO JEWELL MD [Primary Care Provider] - Prescriptions: Amox/Clav 875/125 [Augmentin] 1 each PO Q12H #20 tablet Ondansetron Odt [Zofran] 4 mg TL Q6H PRN #20 tablet PRN Reason: Nausea / Vomiting Oxycodone HCl/Acetaminophen [Percocet 5-325 mg Tablet] 1 each PO Q6H PRN #14 tablet PRN Reason: pain Comments: Please return to the emergency department for worsening symptoms or any concerns Discharge Date/Time: 01/05/18 22:37
[2018-01-05] MEDS ORDERED: MORPHINE 10 MG/ML VIAL IVP STA (19:06)
--- NOTE | 2018-01-05 19:29 | CT Report ---
Reason: LLQ pain Procedure Date: 01/05/2018 Accession Number: [id number] / [id number] Procedure: CT - Abdomen/Pelvis W/O CPT Code: FULL RESULT: EXAM: CT ABDOMEN AND PELVIS EXAM DATE: 01/05/2018 06:53 PM. CLINICAL HISTORY: Severe left lower abdomen pain. Nausea. History of diverticulitis. COMPARISONS: 06/04/2009. TECHNIQUE: Routine helical CT imaging was performed through the abdomen and pelvis. IV contrast: None. Enteric contrast: No. Reconstructions: Coronal and sagittal. In accordance with CT protocol optimization, one or more of the following dose reduction techniques were utilized for this exam: automated exposure control, adjustment of mA and/or KV based on patient size, or use of iterative reconstructive technique. FINDINGS: Lung Bases: Mild left base scarring/atelectasis. Liver: Normal. No masses. Gallbladder/Bile Ducts: Unremarkable. Spleen: Normal. Pancreas: Normal. Adrenal Glands: Normal. Kidneys: Bilateral cysts, left greater than right, with wall calcification on the left. No ureteral stones or obstruction. Peritoneal Cavity/Bowel: Moderate diverticulosis. Proximal sigmoid colon wall thickening with accompanying fat stranding. No free fluid, free air or adenopathy. No masses or acute inflammatory process. The appendix is well visualized and normal. Pelvic Organs: The reproductive organs and bladder are unremarkable. Vasculature: No aortic aneurysm. Moderate atherosclerotic calcification. Bones: Mild S-shaped scoliosis. Multilevel degenerative disk disease. Other: None. IMPRESSION: Uncomplicated upper sigmoid colon diverticulitis. [facility]
[2018-01-05] MEDS ORDERED: PIPERACILLIN/TAZOBACTAM 4.5 GM in SODIUM CHLORIDE 0.9% MINIBAG 100 ML IV STA (20:43)
[2018-01-05] MEDS ORDERED: AMOX/CLAV 875 MG/125 MG TABLET PO STA (21:35)
[2018-01-05 21:49] VITALS: BP 147/74
[2018-01-05] MEDS ORDERED: oxyCODONE/ACET 5/325 Prepack 4 PO STA (22:19)
--- NOTE | 2018-01-06 01:37 | CONSULTATION NOTE ---
DATE OF SERVICE: 01/05/2018 Physician: Mary Laura MD REQUESTING PHYSICIAN: Dr. Bryant Gomez. REASON FOR CONSULTATION: To evaluate the patient with acute diverticulitis for possible hospital admission. CHIEF COMPLAINT: Left lower quadrant abdominal pain. HISTORY OF PRESENT ILLNESS: The patient is a 72-year-old white female with multiple past medical problems including history of diverticulitis who presented to [facility] with the main complaint of abdominal pain. The patient reported that she has had flare-ups of abdominal discomfort once every 2-3 months. Usually does not require hospital admission or any specific treatment. She has history of diverticulosis and perhaps has diverticulitis flares. At least that is what the patient tells me. I do not have documentation of her history. She reports that during the past several months, she had been on vacation and took multiple trips. She does not keep any specific diet. Three weeks ago, she started to develop abdominal discomfort, which was on and off. On the morning of 01/05/2018 she woke up with intense abdominal pain which was worse than the abdominal pain she experienced in the past. It was a progressive pain which stayed with her throughout the day. Around 2 p.m. she came to the ER as the pain was unbearable at that point. She rated it 8-10/10 intensity. It was in the left lower quadrant, associated with feeling sick to the stomach, being nauseous. The patient also had some chills and felt cold, but did not have fever. In the ER, the patient was afebrile and hemodynamically stable. White blood cell count was 11.4, creatinine was 1.3, BUN 22. Laboratories otherwise unremarkable. CT scan of the abdomen showed uncomplicated sigmoid diverticulitis. During the ER stay, patient's pain was difficult to control. She received several doses of opiates including oxycodone, morphine, hydromorphone. She also received lorazepam. When I interviewed the patient, she was frustrated with her long ER stay. She mentioned that our ER was very busy today and she had to wait four hours in the waiting room. She had difficulty sitting for four hours and by the time I saw her, she was exhausted and frustrated. Prior to my exam, it was also discussed that this patient uses nocturnal CPAP and if she were to stay in the hospital overnight, our respiratory therapist could not provide a CPAP machine and the patient did not have access to her own machine. That was also a problem which gave her stress. Bedside exam of the abdomen was benign as far as there was no rebound tenderness. No peritoneal signs and bowel tones were present. It was discussed that given stable vital signs, not much laboratory abnormality and the CT scan showing uncomplicated diverticulitis this would be something that could be treated as an outpatient. Initial treatment would be oral antibiotic. There were no other factors which would require hospital admission such as intractable nausea or vomiting. Intractable pain could qualify for hospital stay until symptoms would get under control and that was discussed with the patient. She felt that she did not require admission for pain control and she felt that she would rather go home. Use of her CPAP factored into her decision. The way she described it: as much stress hospital admission would take off of her, it would cause even more stress not being able to have access to a CPAP. In any case, after discussing all options such as outpatient treatment versus hospital stay with an observation admission, the patient decided to get discharged from the ER. At that point, I discussed return precautions with her and I also discussed special dietary recommendations for diverticulitis and diverticulosis. PAST MEDICAL HISTORY 1. Chronic kidney disease. 2. Hypertension. 3. Dyslipidemia. 4. Degenerative disk disease of the spine. 5. Gastroesophageal reflux/history of Mitchell's esophagus. 6. History of diverticulitis. 7. Obstructive sleep apnea, using CPAP. 8. Breast cancer, status post left-sided lumpectomy. The patient refused chemo or radiation therapy. Has good outpatient followup. 9. Chronic fatigue syndrome. PRIMARY CARE PROVIDER: Dr. Aggie white [place]. SOCIAL HISTORY: The patient smokes cigarettes. She does not drink alcohol. FAMILY HISTORY: Positive for colon cancer in the mother around age 60. REVIEW OF SYSTEMS: Please see pertinent positives listed at history of present illness. In addition, the patient complained of ankle swelling which was worse than before. She does have an ankle fusion on the right side and she noticed more swelling than before. She also noticed the left ankle being slightly swollen. On complete 12-point review, there were no additional complaints. Last colonoscopy was less than a year ago, was unremarkable. PHYSICAL EXAMINATION VITAL SIGNS: Temperature 36.6 Celsius, heart rate between 70 and 80, blood pressure 140/70, respiratory rate 16, oxygen saturation 99% on room air. GENERAL: The patient is a well-developed female who was not in acute distress. SKIN: No rash, no jaundice. LYMPH: Minimal pitting edema on bilateral feet. CVS: S1, S2, regular. RESPIRATORY: Clear to auscultation with good air entry throughout. NEUROLOGIC: Alert, oriented, nonfocal. PSYCHIATRIC: Appeared frustrated and anxious, but cooperative. ABDOMEN: Bowel tones active and present. Diffuse tenderness, mostly in the left lower quadrant without guarding or rebound. MUSCULOSKELETAL: Atraumatic. ASSESSMENT AND RECOMMENDATIONS 1. The patient is a 72-year-old female who presented with left lower quadrant abdominal pain. She was diagnosed with uncomplicated sigmoid diverticulitis on CT scan. For this problem I recommend initial outpatient treatment and I will only recommend hospital admission if the patient fails outpatient therapy. Additional issues or problems that could change this patient's treatment options would be uncontrolled nausea or vomiting, not being able to take oral intake or uncontrolled pain. These symptoms are currently not present. All options were discussed with the patient; she wished to discharge and attempt outpatient treatment. Return precautions were discussed. Diet recommendations were discussed as well. 2. Chronic renal insufficiency. Creatinine at baseline. 3. Ankle swelling. This appears as a dependent change. The patient was on vacation and had been ambulating and being active more than usual. This could be lymphedema and dependent change. However, I recommended the patient to follow up with the primary care provider regarding this problem and get evaluated for possibility of developing heart failure. She does not seem to have abnormal liver function tests indicating liver failure. She could also have proteinuria and hypertensive nephropathy, which could also cause lower extremity swelling. For that, I recommended outpatient followup and evaluation. In summary, all options were discussed and the patient decided to discharge from the ER. Other factor that played into her decision was CPAP use and that is described above in history of present illness and ER course. Time spent with the evaluation of this patient in the ER was 60 minutes. TD: 01/05/2018 23:30 EMILIO
== END 2018-01-05 22:37 | disposition home or self-care (01) ==
LOC: ED 14:26
DX: K57.32 Diverticulitis of large intestine without perforation or abscess without bleeding (principal); I10 Essential (primary) hypertension; F17.200 Nicotine dependence, unspecified, uncomplicated
CPT/HCPCS: 36415; 74176; 80053; 81003; 83690; 85025; 96361; 96374; 96375; 99283; 99284; A9270; 81001; 87086

== ENCOUNTER 2018-01-12 22:44 | Emergency (ER) | payer MEDICARE, BC ==
--- NOTE | 2018-01-13 02:28 | ED Physician Documentation ---
History of Present Illness - Stated complaint Stated Complaint: ANXIETY/SOA - Chief complaint Chief Complaint: MHE - History obtained from History obtained from: Patient - History of Present Illness Pain level now: 3 Improved by: no ameliorating factors Worsened by: no exacerbating factors - Additonal information Additional information: T+R from this ED 01/05, diagnosed with diverticulitis and prescribed augmentin. She says she did not take this medication because when she went to fill the rx, she was told this was on her listed medication allergies. She followed up with her doctor at the [facility] on Tuesday (01/10); she has paperwork from this visit, and they indicate she was given rocephin and instructed to then go directly to [facility] for admission. She was admitted to [facility] the same day, left (01/12). She says she insisted on leaving, although she has paperwork that indicates she was discharged (did not leave AMA) ; patient says she was unhappy with her stay there. She was prescribed keflex and metronidazole. During her hospital stay, she woke from sleep with sensation of shaking; she described it as feeling as though there were tremors like an earthquake. She asked her roommate if they felt the same sensation and they said they did not. she has subsequently felt episodes of this same sensation even when awake; this has caused her significant anxiety. She read the potential side effects of the antibiotics and she strongly suspects she is having side effects of one or both of the antibiotics. Her chief complaint at this time is generalized anxiety Review of Systems Constitutional: reports: Reviewed and negative Cardiac: reports: Reviewed and negative Respiratory: reports: Reviewed and negative GI: reports: Abdominal Pain, Nausea, Diarrhea. denies: Vomiting : denies: Dysuria Psychiatric: reports: Anxiety. denies: Hallucinations, Delusions PD PAST MEDICAL HISTORY - Past Medical History Past Medical History: Yes Cardiovascular: Hypertension Respiratory: None Neuro: Other Endocrine/Autoimmune: None GI: Diverticulitis IMMIGRATION MANAGER: None : None HEENT: None Psych: Depression, Anxiety, Bipolar disorder, Panic attacks, Claustrophobia Musculoskeletal: Fibromyalgia, Scoliosis, Chronic back pain Derm: Psoriasis - Past Surgical History Past Surgical History: Yes General: Colonoscopy, EGD Ortho: Spine surgery, Other /IMMIGRATION MANAGER: section, Breast implants, Other HEENT: Tonsil/Adenoidectomy - Present Medications Home Medications: Ambulatory Orders Medication Instructions Recorded Confirmed Hydrochlorothiazide 25 mg PO DAILY 02/15/13 02/03/17 Lisinopril [Zestril] 40 mg PO DAILY 02/15/13 02/03/17 Atorvastatin [Lovastatin] 20 mg PO DAILY 02/09/14 02/03/17 Pantoprazole [Protonix] 40 mg PO DAILY 10/13/16 02/03/17 Amlodipine Besylate [Norvasc] 1 tab PO DAILY 08/02/17 08/02/17 Oxycodone HCl/Acetaminophen 1 each PO Q6H PRN #20 tablet 08/02/17 [Percocet 5-325 mg Tablet] Aspirin [Adult Aspirin Regimen] 1 tab PO DAILY 10/04/17 10/04/17 Cephalexin [Keflex] 500 mg PO TID #21 capsule 10/04/17 Metronidazole [Flagyl] 500 mg PO BID #14 tablet 10/04/17 Ondansetron Odt [Zofran] 4 mg TL Q6H PRN #15 tablet 10/04/17 Oxycodone HCl/Acetaminophen 1 each PO Q6H PRN #20 tablet 10/04/17 [Percocet 5-325 mg Tablet] Potassium Chloride 1 tab PO DAILY 10/04/17 10/04/17 Amox/Clav 875/125 [Augmentin] 1 each PO Q12H #20 tablet 01/05/18 Ondansetron Odt [Zofran] 4 mg TL Q6H PRN #20 tablet 01/05/18 Oxycodone HCl/Acetaminophen 1 each PO Q6H PRN #14 tablet 01/05/18 [Percocet 5-325 mg Tablet] LORazepam [Ativan] 0.5 - 1 mg PO Q6H PRN #20 tablet 01/13/18 Sulfamethox/Trimeth 800/160 1 each PO BID #14 tablet 01/13/18 [Bactrim Ds 800/160] - Allergies Allergies/Adverse Reactions: Allergies Allergy/AdvReac Type Severity Reaction Status Date / Time hydromorphone [From Dilaudid] Allergy Anxiety Verified 01/05/18 14:34 codeine [Codeine] AdvReac Severe Anxiety Verified 01/05/18 14:34 doxepin [Doxepin] AdvReac Severe Anxiety Verified 01/05/18 14:34 NSAIDS (Non-Steroidal AdvReac Severe Anxiety Verified 01/05/18 14:34 Anti-Inflamma ampicillin AdvReac Unknown Verified 01/05/18 14:34 antidepressants Allergy Respiratory Uncoded 01/05/18 14:34 steroids Allergy Anxiety Uncoded 01/05/18 14:34 - Social History Does the pt smoke?: Yes Smoking Status: Current every day smoker Does the pt drink ETOH?: Yes Does the pt have substance abuse?: No - Immunizations Immunizations are current?: Yes - POLST Patient has POLST: No PD ED PE NORMAL - Vitals Vital signs reviewed: Yes - General General: Alert and oriented X 3, Well developed/nourished, Other (appears anxious) - HEENT HEENT: Moist mucous membranes - Cardiac Cardiac: RRR, No murmur - Respiratory Respiratory: No respiratory distress, Clear bilaterally - Abdomen Abdomen: Soft, Non distended, Other (mild tenderness to palpation LLQ without rebound or guarding) - Back Back: No CVA TTP - Derm Derm: Normal color, Warm and dry, No rash - Neuro Neuro: Alert and oriented X 3 Results - Vitals Vitals: Oxygen O2 Source Room air PD MEDICAL DECISION MAKING - ED course Complexity details: reviewed old records, re-evaluated patient, considered differential, d/w patient ED course: given lorazepam in ED and on reevaluation, she appears calm and in NAD. She reports feeling significant relief of the anxiety. She has printed sheets of side effects of the keflex and flagyl, and has highlighted the neurologic side effects (metronidazole). I explained to her that I feel it unlikely that this is causing her symptoms, and I encouraged her to continue taking both of these medications (she has already missed doses for fear of her sensation of anxiety and tremulousness getting worse). I explained that she would be at greater risk of complications of worsening diverticulitis if she does not take any antibiotics at all. Furthermore, her other listed allergies preclude many of the other optimal antibiotics for diverticulitis (she also says she cannot take cipro due to side effects). She says she can take sulfa-based drugs, and thus I prescribed bactrim with the instruction to try to continue the current regimen ( keflex and metronidazole) along with PRN lorazepam. Should she continue to have problems with this regimen, she can switch to the bactrim, although I explained this is not particularly effective as monotherapy for diverticulitis (uptodate does list it as a recommended antibiiotic in combination with metronidazole). She expresses understanding of, and comfort with, this plan. - Sepsis Event Vital Signs: Oxygen O2 Source Room air Departure - Departure Disposition: 01 Home, Self Care Clinical Impression: Diverticulitis, Anxiety Condition: Good Instructions: ED Diverticulitis, ED Panic Attack Follow-Up: REYNALDO JEWELL MD [Primary Care Provider] - Within 3 Days Prescriptions: LORazepam [Ativan] 0.5 - 1 mg PO Q6H PRN #20 tablet PRN Reason: Anxiety Sulfamethox/Trimeth 800/160 [Bactrim Ds 800/160] 1 each PO BID #14 tablet Comments: I recommend you continue the current antibiotics (keflex and metronidazole); the ativan I prescribed will hopefully make the side effects tolerable. If you find that the side effects of the antibiotics are not tolerable even with the ativan, then take the bactrim I have prescribed instead of the other antibiotics. Bactrim is not an ideal medication for diverticulitis, so I would prefer that you continue the current antibiotics if tolerable. Follow-up with your primary care physician, next available appointment Discharge Date/Time: 01/13/18 04:16
[2018-01-13] MEDS ORDERED: LORazepam 0.5 MG TABLET PO STA ×2 (02:47→04:07)
[2018-01-13 03:46] VITALS: BP 166/72
== END 2018-01-13 04:16 | disposition home or self-care (01) ==
LOC: ED 22:44
DX: K57.92 Diverticulitis of intestine, part unspecified, without perforation or abscess without bleeding (principal); F41.9 Anxiety disorder, unspecified; I10 Essential (primary) hypertension; Z79.82 Long term (current) use of aspirin; F17.200 Nicotine dependence, unspecified, uncomplicated; T36.1X6A Underdosing of cephalosporins and other beta-lactam antibiotics, initial encounter; T37.3X6A Underdosing of other antiprotozoal drugs, initial encounter; Z91.128 Patient's intentional underdosing of medication regimen for other reason
CPT/HCPCS: 93005; 99283; 99284; A9270

== ENCOUNTER 2018-02-24 13:52 | Outpatient (CLI) | payer MEDICARE, BC ==
[2018-02-24 18:19] LABS: ALBUMIN 4.2 g/dL (3.2-5.5); CALCIUM 9.3 mg/dL (8.5-10.3); CREATININE 1.7 mg/dL (0.4-1.0); PHOSPHORUS 2.8 mg/dL (2.5-4.6)
== END 2018-02-24 13:53 | disposition home or self-care (01) ==
LOC: LAB.F 13:52
PROVIDERS: ATTEND Internal Medicine Nephrology
DX: N17.9 Acute kidney failure, unspecified (principal)
CPT/HCPCS: 36415; 80069

== ENCOUNTER 2018-03-10 21:43 | Emergency (ER) | payer MEDICARE, BC ==
--- NOTE | 2018-03-10 22:08 | ED Physician Documentation ---
PD HPI ABD PAIN - Stated complaint Stated Complaint: ABD PX - Chief complaint Chief Complaint: Abd Pain - History obtained from History obtained from: Patient - History of Present Illness Timing - onset: How many days ago (1-2) Timing - duration: Days (She has been having general abdominal pain but more on the left side for the last couple of months. She is been seeing a GI s pecialist. She states she has been having unusual side effects with any pain medications or medication for anxiety. She has had increased pain on the left side for the last day or 2. She has had a history of diverticulitis and is concerned she is developing that. She has had firm stools out with constipationt is also concerned about a bowel obstruction.) Timing - details: Gradual onset, Waxing and waning Quality: Cramping, Aching, Pain Location: LUQ, LLQ Radiation: No: Lower back Improved by: BM Worsened by: Position, Palpation. No: Eating Associated symptoms: Nausea, Constipation. No: Fever, Diarrhea, Melena, H ematochezia Similar symptoms before: Diagnosis (has had diverticulitis in the past.) Recently seen: Clinic (seeing GI and has transit time study being done currently, with some xrays today and repeat ones planned for Tuesday.) Review of Systems Constitutional: denies: Fever, Chills, Myalgias Nose: denies: Rhinorrhea / runny nose, Congestion Throat: denies: Sore throat Cardiac: denies: Chest pain / pressure Respiratory: denies: Cough GI: reports: Abdominal Pain, Nausea, Constipation. denies: Abdominal Swelling, Vomiting, Diarrhea : denies: Dysuria, Frequency Skin: denies: Rash, Lesions PD PAST MEDICAL HISTORY - Past Medical History Cardiovascular: Hypertension Respiratory: None Neuro: Other Endocrine/Autoimmune: None GI: Diverticulitis PARTS BACK COUNTER MAN: None : None HEENT: None Psych: Depression, Anxiety, Bipolar disorder, Panic attacks, Claustrophobia Musculoskeletal: Fibromyalgia, Scoliosis, Chronic back pain Derm: Psoriasis - Past Surgical History Past Surgical History: Yes General: Colonoscopy, EGD Ortho: Spine surgery, Other /PARTS BACK COUNTER MAN: section, Breast implants, Other HEENT: Tonsil/Adenoidectomy - Present Medications Home Medications: Ambulatory Orders Medication Instructions Recorded Confirmed Hydrochlorothiazide 25 mg PO DAILY 02/15/13 02/03/17 Lisinopril [Zestril] 40 mg PO DAILY 02/15/13 02/03/17 Atorvastatin [Lovastatin] 20 mg PO DAILY 02/09/14 02/03/17 Pantoprazole [Protonix] 40 mg PO DAILY 10/13/16 02/03/17 Amlodipine Besylate [Norvasc] 1 tab PO DAILY 08/02/17 08/02/17 Oxycodone HCl/Acetaminophen 1 each PO Q6H PRN #20 tablet 08/02/17 [Percocet 5-325 mg Tablet] Aspirin [Adult Aspirin Regimen] 1 tab PO DAILY 10/04/17 10/04/17 Cephalexin [Keflex] 500 mg PO TID #21 capsule 10/04/17 Metronidazole [Flagyl] 500 mg PO BID #14 tablet 10/04/17 Ondansetron Odt [Zofran] 4 mg TL Q6H PRN #15 tablet 10/04/17 Oxycodone HCl/Acetaminophen 1 each PO Q6H PRN #20 tablet 10/04/17 [Percocet 5-325 mg Tablet] Potassium Chloride 1 tab PO DAILY 10/04/17 10/04/17 Amox/Clav 875/125 [Augmentin] 1 each PO Q12H #20 tablet 01/05/18 Ondansetron Odt [Zofran] 4 mg TL Q6H PRN #20 tablet 01/05/18 Oxycodone HCl/Acetaminophen 1 each PO Q6H PRN #14 tablet 01/05/18 [Percocet 5-325 mg Tablet] LORazepam [Ativan] 0.5 - 1 mg PO Q6H PRN #20 tablet 01/13/18 Sulfamethox/Trimeth 800/160 1 each PO BID #14 tablet 01/13/18 [Bactrim Ds 800/160] - Allergies Allergies/Adverse Reactions: Allergies Allergy/AdvReac Type Severity Reaction Status Date / Time hydromorphone [From Dilaudid] Allergy Anxiety Verified 03/10/18 21:54 codeine [Codeine] AdvReac Severe Anxiety Verified 03/10/18 21:54 doxepin [Doxepin] AdvReac Severe Anxiety Verified 03/10/18 21:54 NSAIDS (Non-Steroidal AdvReac Severe Anxiety Verified 03/10/18 21:54 Anti-Inflamma ampicillin AdvReac Unknown Verified 03/10/18 21:54 antidepressants Allergy Respiratory Uncoded 03/10/18 21:54 steroids Allergy Anxiety Uncoded 03/10/18 21:54 - Social History Does the pt smoke?: Yes Smoking Status: Current every day smoker Does the pt drink ETOH?: Yes Does the pt have substance abuse?: No - Immunizations Immunizations are current?: Yes - POLST Patient has POLST: No PD ED PE NORMAL - Vitals Vital signs reviewed: Yes - General General: Alert and oriented X 3, No acute distress, Well developed/nourished - HEENT HEENT: Pharynx benign - Neck Neck: Supple, no meningeal sign, No adenopathy - Cardiac Cardiac: RRR, No murmur - Respiratory Respiratory: Clear bilaterally - Abdomen Abdomen: Normal bowel sounds, Soft, Non distended, No organomegaly, Other (tender left sided abd, more upper than lower. No guarding nor percussion tenderness. ) Results - Vitals Vitals: Vital Signs - 24 hr 03/10/18 03/10/18 03/11/18 21:45 23:41 00:20 Temperature 36.0 C L Heart Rate 64 61 88 Respiratory 18 20 18 Rate Blood Pressure 161/71 H 142/69 H 134/63 H O2 Saturation 98 100 100 Oxygen O2 Source Room air - Labs Labs: Laboratory Tests 03/10/18 03/10/18 03/10/18 22:05 22:12 22:12 WBC 7.0 RBC 4.13 L Hgb 12.6 Hct 37.3 MCV 90.2 MCH 30.4 MCHC 33.7 RDW 14.0 Plt Count 232 MPV 10.2 Neut # (Auto) 4.8 Lymph # (Auto) 1.3 L [place] # (Auto) 0.7 Eos # (Auto) 0.1 Baso # (Auto) 0.1 Absolute Nucleated RBC 0.00 Nucleated RBC % 0.0 Sodium 138 Potassium 4.0 Chloride 101 Carbon Dioxide 25 Anion Gap 12.0 BUN 19 Creatinine 1.6 H Estimated GFR (MDRD) 32 L Glucose 97 Calcium 9.8 Total Bilirubin 1.0 AST 17 ALT 17 Alkaline Phosphatase 72 Total Protein 7.6 Albumin 4.6 Globulin 3.0 Albumin/Globulin Ratio 1.5 Lipase 26 Urine Color YELLOW Urine Clarity CLEAR Urine pH 6.5 Ur Specific [place] 1.015 Urine Protein NEGATIVE Urine Glucose (UA) NEGATIVE Urine Ketones NEGATIVE Urine Occult Blood NEGATIVE Urine Nitrite NEGATIVE Urine Bilirubin NEGATIVE Urine Urobilinogen 0.2 (NORMAL) Ur Leukocyte Esterase NEGATIVE Ur Microscopic Review NOT INDICATED Urine Culture Comments NOT INDICATED - Rads (name of study) abd CT Radiology: Prelim report reviewed (no diverticulitis nor obstruction. No acute process. ) PD MEDICAL DECISION MAKING - ED course Complexity details: reviewed old records, reviewed results (No diverticulitis or obstruction. It does not look excessive.), considered differential (She says she has had considerable side effects from various pain medications and nausea medicines. She declines the need for any stronger medicine here. She was given Tylenol and Toradol. She states she started to feel a little funny with the Toradol infusing. There is a large psychological component I think and that her symptoms were just as the medication was being injected in the IV. However we will not give any medicines to make her feel abnormal. She states she is okay with the pain provided that we exclude more significant causes.), d/w patient Departure - Departure Disposition: 01 Home, Self Care Clinical Impression: Left sided abdominal pain Clinical Impression: (Ruled Out): Diverticulitis Condition: Stable Record reviewed to determine appropriate education?: Yes Instructions: ED Abdominal Pain Unkn Cause Comments: No signs of diverticulitis or bowel obstruction at this time. Continue your current medications. You could try the dicyclomine antispasmodic he had been prescribed from the GI doctor. Drink lots of fluids. Follow-up with your GI specialist as planned after your current tests over the weekend. Discharge Date/Time: 03/11/18 00:20
[2018-03-10 22:20] LABS: BASOPHILS # (AUTO) 0.1 10^3/uL (0.0-0.1); BASOPHILS % (AUTO) 1.4 %; EOSINOPHILS # (AUTO) 0.1 10^3/uL (0.0-0.7); EOSINOPHILS % (AUTO) 2.1 %; HGB - HEMOGLOBIN 12.6 g/dL (12.0-16.0); LYMPHOCYTES # (AUTO) 1.3 10^3/uL (1.5-3.5); LYMPHOCYTES % (AUTO) 18.6 %; MEAN CORPUSCULAR HEMOGLOBIN 30.4 pg (27.0-31.0); MEAN CORPUSCULAR HGB CONC 33.7 g/dL (32.0-36.0); MEAN CORPUSCULAR VOLUME 90.2 fL (81.0-99.0); MEAN PLATELET VOLUME 10.2 fL (7.9-10.8); MONOCYTES # (AUTO) 0.7 10^3/uL (0.0-1.0); MONOCYTES % (AUTO) 9.6 %; NEUTROPHILS # (AUTO) 4.8 10^3/uL (1.5-6.6); NEUTROPHILS % (AUTO) 68.3 %; PLT - PLATELET COUNT 232 10^3/uL (130-450); RED BLOOD COUNT 4.13 10^6/uL (4.20-5.40)
[2018-03-10 22:32] LABS: BILIRUBIN,URINE NEGATIVE (NEGATIVE); GLUCOSE, URINE (UA) NEGATIVE (NEGATIVE); KETONES,URINE (UA) NEGATIVE (NEGATIVE); LEUKOCYTE ESTERASE, URINE NEGATIVE (NEGATIVE); NITRITE,URINE NEGATIVE (NEGATIVE); OCCULT BLOOD,URINE NEGATIVE (NEGATIVE); PH,URINE 6.5 PH (5.0-7.5); PROTEIN,URINE NEGATIVE (NEGATIVE); UROBILINOGEN,URINE 0.2 (NORMAL) E.U./dL (NORMAL)
[2018-03-10 22:33] LABS: ALBUMIN 4.6 g/dL (3.2-5.5); ALBUMIN/GLOBULIN RATIO 1.5 (1.0-2.2); CALCIUM 9.8 mg/dL (8.5-10.3); CREATININE 1.6 mg/dL (0.4-1.0); TOTAL PROTEIN 7.6 g/dL (6.7-8.2)
[2018-03-10 22:39] LABS: CLARITY,URINE CLEAR (CLEAR)
[2018-03-10] MEDS ORDERED: SODIUM CHLORIDE 0.9% 1,000 ML IV ONE (22:48)
[2018-03-10] MEDS ORDERED: KETOROLAC 15 MG/ML VIAL IVP STA (22:48)
[2018-03-10] MEDS ORDERED: ACETAMINOPHEN 1,000 MG/100 ML 100 ML IV STA (22:48)
--- NOTE | 2018-03-10 23:48 | CT Report ---
Reason: left abd pain; h/o diverticulitis in past; low GFR Procedure Date: 03/10/2018 Accession Number: [id number] / [id number] Procedure: CT - Abdomen/Pelvis W/O CPT Code: FULL RESULT: EXAM: CT ABDOMEN AND PELVIS EXAM DATE: 03/10/2018 11:25 PM. CLINICAL HISTORY: Left abd pain; h/o diverticulitis in past; low GFR. COMPARISONS: ABDOMEN/PELVIS W/O 01/05/2018 6:43 PM. TECHNIQUE: Routine helical CT imaging was performed through the abdomen and pelvis. IV contrast: None. Enteric contrast: No. Reconstructions: Coronal and sagittal. In accordance with CT protocol optimization, one or more of the following dose reduction techniques were utilized for this exam: automated exposure control, adjustment of mA and/or KV based on patient size, or use of iterative reconstructive technique. FINDINGS: Lung Bases: Unremarkable. Liver: Normal. No masses. Gallbladder/Bile Ducts: Unremarkable. Spleen: Normal. Pancreas: Normal. Adrenal Glands: Normal. Kidneys: Left renal cysts. No hydronephrosis or nephrolithiasis. Peritoneal Cavity/Bowel: Normal. No free fluid, free air or adenopathy. No masses or acute inflammatory process. Extensive diverticulosis, but no CT evidence of diverticulitis. The appendix is well visualized and normal. Pelvic Organs: Normal. The bladder and visualized pelvic organs are within normal limits. Vasculature: No aneurysms or other significant abnormality. Bones: Degenerative changes. Other: Dystrophic calcification in the lower anterior abdominal wall musculature, stable. IMPRESSION: Extensive diverticulosis, but no CT evidence of diverticulitis. Normal appendix. RADIA
[2018-03-11 00:22] VITALS: BP 134/63
== END 2018-03-11 00:20 | disposition home or self-care (01) ==
LOC: ED 21:43
DX: R10.12 Left upper quadrant pain (principal); I10 Essential (primary) hypertension; F17.200 Nicotine dependence, unspecified, uncomplicated
CPT/HCPCS: 36415; 74176; 80053; 81003; 83690; 85025; 96365; 99283; 99284; J0131; 81001; 87086

== ENCOUNTER 2018-04-08 10:46 | Outpatient (CLI) | payer MEDICARE, BC ==
[~2018-04-08 10:46] MED LIST: IOVERSOL 320 100 ML VIAL IVP ONE
--- NOTE | 2018-04-09 12:52 | CT Report ---
Reason: GENERALIZED ABDOMINAL PAIN, ANXIETY DISORDER,UNSPE Procedure Date: 04/08/2018 Accession Number: [id number] / [id number] Procedure: CT - Abdomen Angio CPT Code: FULL RESULT: EXAM: CT ANGIOGRAM ABDOMEN AND PELVIS WITH CONTRAST EXAM DATE: 04/08/2018 12:28 PM. CLINICAL HISTORY: Generalized abdominal pain. COMPARISONS: CT abdomen/pelvis 03/10/2018, CT abdomen/pelvis 01/05/2018, CT abdomen and pelvis with contrast 05/06/2006. TECHNIQUE: Routine helical CT angiogram imaging was performed through the abdomen and pelvis in the arterial phase. IV contrast: 80 mL Optiray 320. Enteric contrast: No. Reconstructions: Coronal, sagittal, and 3D MIP reconstructions. In accordance with CT protocol optimization, one or more of the following dose reduction techniques were utilized for this exam: automated exposure control, adjustment of mA and/or KV based on patient size, or use of iterative reconstructive technique. FINDINGS: Vasculature: No aneurysm or dissection of the abdominal aorta and iliac arteries. There is moderate atherosclerotic calcification of the abdominal aorta and bilateral common iliac arteries without significant luminal narrowing. There is moderate atherosclerotic calcification at the origin of the celiac axis without significant luminal narrowing. There is atherosclerotic calcification at the origin of the superior mesenteric artery without significant luminal narrowing. There is moderate atherosclerotic plaque at the origin of the right renal artery with approximately 50% luminal narrowing. There is mild atherosclerotic plaque at the origin of the left renal artery with approximately 40% luminal narrowing. The inferior mesenteric artery is patent. Lung Bases: There is mild dependent atelectasis or scarring at the bilateral lung bases Abdominal Solid Organs: There are multiple bilateral simple renal cortical cysts. No hydronephrosis or solid renal mass. The liver, spleen, pancreas, adrenal glands, and gallbladder are normal in size and demonstrate no masses or abnormal enhancement. Peritoneal Cavity: There is extensive diverticulosis of the sigmoid colon without evidence of acute diverticulitis.. No free fluid, free air, or acute inflammatory process. The appendix is normal. Pelvic Organs: Normal. The bladder and visualized pelvic organs are within normal limits. Bones: There are moderate to severe degenerative disk changes of the lower thoracic and lumbar spine. S-shaped scoliosis of the lower thoracic and lumbar spine is likely secondary to degenerative changes. No spondylolisthesis. No acute fracture or bone lesion. Other: None. IMPRESSION: 1. No aneurysm or dissection of the abdominal aorta. 2. Moderate atherosclerotic calcification of the abdominal aorta and its branch vessels. 3. Luminal narrowing at the origin of the right renal artery measures approximately 50%. Luminal narrowing at the origin of the left renal artery measures approximately 40%. 4. Extensive diverticulosis of the sigmoid colon without evidence of acute diverticulitis. 5. Multiple bilateral simple renal cortical cysts. 6. Moderate to severe degenerative disk changes of the spine. S-shaped scoliosis is likely secondary to degenerative changes. No acute osseous abnormality. [facility]
== END 2018-04-08 10:47 | disposition home or self-care (01) ==
LOC: DI 10:46
PROVIDERS: ATTEND Internal Medicine Gastroenterology
DX: I70.0 Atherosclerosis of aorta (principal); I77.1 Stricture of artery; K57.30 Diverticulosis of large intestine without perforation or abscess without bleeding; Q61.02 Congenital multiple renal cysts; M51.36 Other intervertebral disc degeneration, lumbar region; M51.34 Other intervertebral disc degeneration, thoracic region; M41.9 Scoliosis, unspecified
CPT/HCPCS: 74175; Q9967

== ENCOUNTER 2018-04-14 13:34 | Outpatient (CLI) | payer MEDICARE, BC ==
[2018-04-14 17:57] LABS: ALBUMIN 4.6 g/dL (3.2-5.5); CALCIUM 9.6 mg/dL (8.5-10.3); MAGNESIUM 1.6 mg/dL (1.7-2.8)
== END 2018-04-14 13:35 | disposition home or self-care (01) ==
LOC: LAB.F 13:34
PROVIDERS: ATTEND Internal Medicine Nephrology
DX: N18.3 Chronic kidney disease, stage 3 (moderate) (principal)
CPT/HCPCS: 36415; 80069; 83735

== ENCOUNTER 2018-05-07 08:00 | Outpatient (CLI) | payer MEDICARE, BC | END 2018-05-07 23:59 | disposition home or self-care (01) | LOC: LAB.R 08:00 | PROVIDERS: ATTEND Specialist | DX: R41.3 Other amnesia (principal) | CPT/HCPCS: 81599; 82656; 87177; 87209; 87329 ==